=== PATIENT | male | born 1970 | race Caucasian/White ===

== ENCOUNTER → 2021-09-07 | Outpatient (CLI) | payer OTHER | LOC: PUL 09:30 | PROVIDERS: ATTEND Chiropractor | DX: J45.998 Other asthma (principal); Z20.822 Contact with and (suspected) exposure to COVID-19 ==

== ENCOUNTER → 2021-10-24 | Outpatient (CLI) | payer OTHER | LOC: RAD 10:35 | PROVIDERS: ATTEND Chiropractor | DX: R09.89 Other specified symptoms and signs involving the circulatory and respiratory systems (principal); J45.998 Other asthma ==